=== PATIENT | female | born 1985 | race Caucasian/White ===

== ENCOUNTER 2017-06-15 14:30 | Outpatient (RCR) | payer BC ==
[2017-04-08 08:30] VITALS: BP 120/58
[2017-04-08 08:41] LABS: PLATELET COUNT, AUTOMATED 245 K/uL (150-450)
[2017-04-15 14:37] VITALS: BP 117/64
[2017-05-13] MEDS: NS(*) 0.9% 100 ML BAG 100 ML IVPB PRN (15:04)
[2017-05-13 15:58] VITALS: BP 117/64
[~2017-06-15] VITALS: Ht 167.6 cm; Wt 68.0 kg
[~2017-06-15 14:30] MED LIST: ABA250I IVPB; ABATACEPT 250 MG SDV 750 MG in NS(*) 0.9% 100 ML BAG 100 ML IVPB ONE; CITA-137 PO; DEXTROSE 5%(*) 100 ML BAG 100 ML IVPB PRN; LIDOCAINE/SOD BICARB 8.4% SYR ID PRN; NAPR1TAB PO; NAPR1TAB6 PO
[2017-06-15 14:45] VITALS: BP 124/70
[2017-06-15] MEDS: NS(*) 0.9% 100 ML BAG 100 ML IVPB PRN (15:01)
[2017-06-15 15:13] LABS: PLATELET COUNT, AUTOMATED 237 K/uL (150-450)
[2017-06-15] MEDS ORDERED: ABATACEPT 250 MG SDV 750 MG in NS(*) 0.9% 100 ML BAG 100 ML IVPB ONE (15:30)
== END 2017-07-06 ==
LOC: SPU 14:30
PROVIDERS: ATTEND Nurse Practitioner Family
DX: L40.50 Arthropathic psoriasis, unspecified (principal)
CPT/HCPCS: 85025; 85651; 96365; 96374; J0129; J7050; 82040; 82247; 82310; 82374; 82435; 82565; 82947; 84075; 84132; 84155; 84295; 84450; 84460; 84520

== ENCOUNTER 2017-09-07 14:23 | Outpatient (RCR) | payer BC ==
[2017-07-15 14:28] VITALS: BP 120/80
[2017-07-15] MEDS: NS(*) 0.9% 100 ML BAG 100 ML IVPB PRN (14:40)
[2017-08-12 14:43] VITALS: BP 131/72
[2017-08-12 14:58] LABS: PLATELET COUNT, AUTOMATED 232 K/uL (150-450)
[2017-08-12] MEDS: NS(*) 0.9% 100 ML BAG 100 ML IVPB PRN (15:07)
[2017-09-07 14:41] VITALS: BP 118/74
[2017-09-07] MEDS: NS(*) 0.9% 100 ML BAG 100 ML IVPB PRN (15:00)
[2017-09-07] MEDS ORDERED: ABATACEPT 250 MG SDV 750 MG in NS(*) 0.9% 100 ML BAG 100 ML IVPB ONE (15:00)
== END 2017-10-06 10:47 | disposition home or self-care (01) ==
LOC: SPU 14:23
PROVIDERS: ATTEND Nurse Practitioner Family
DX: L40.50 Arthropathic psoriasis, unspecified (principal)
CPT/HCPCS: 85025; 85651; 96365; 96374; J0129; J7050; 82040; 82247; 82310; 82374; 82435; 82565; 82947; 84075; 84132; 84155; 84295; 84450; 84460; 84520

== ENCOUNTER 2017-11-11 14:24 | Outpatient (RCR) | payer BC ==
[~2017-11-11 14:24] MED LIST changes: -ABATACEPT 250 MG SDV 750 MG in NS(*) 0.9% 100 ML BAG 100 ML IVPB ONE; +NS(*) 0.9% 100 ML BAG 100 ML IVPB PRN
[2017-11-11 14:32] VITALS: BP 123/64
[2017-11-11 14:45] LABS: PLATELET COUNT, AUTOMATED 258 K/uL (150-450)
[2017-11-11] MEDS ORDERED: ABATACEPT 250 MG SDV 750 MG in NS(*) 0.9% 100 ML BAG 100 ML IVPB ONE (15:15)
[2017-11-11 15:35] VITALS: BP 107/75
== END 2017-12-06 11:19 | disposition home or self-care (01) ==
LOC: SPU 14:24
PROVIDERS: ATTEND Nurse Practitioner Family
DX: L40.50 Arthropathic psoriasis, unspecified (principal)
CPT/HCPCS: 82565; 84450; 85025; 85651; 96365; J0129; J7050

== ENCOUNTER 2018-02-02 12:47 | Outpatient (RCR) | payer BC ==
[2017-12-09] MEDS: NS(*) 0.9% 100 ML BAG 100 ML IVPB PRN (14:42)
[2017-12-09 14:45] VITALS: BP 114/72
[2017-12-09 16:07] VITALS: BP 114/72
[~2018-02-02 12:47] MED LIST changes: +ABATACEPT 250 MG SDV 750 MG in NS(*) 0.9% 100 ML BAG 100 ML IVPB ONE; -NS(*) 0.9% 100 ML BAG 100 ML IVPB PRN
[2018-02-02 13:04] LABS: PLATELET COUNT, AUTOMATED 275 K/uL (150-450)
[2018-02-02 13:10] VITALS: BP 122/90
[2018-02-02] MEDS: NS(*) 0.9% 100 ML BAG 100 ML IVPB PRN (13:23)
[2018-02-02] MEDS ORDERED: ABATACEPT 250 MG SDV 750 MG in NS(*) 0.9% 100 ML BAG 100 ML IVPB ONE (14:00)
[2018-02-02 14:03] VITALS: BP 111/74
[2018-02-27] MEDS ORDERED: SERT-184 PO (12:52)
== END 2018-03-09 ==
LOC: SPU 12:47
PROVIDERS: ATTEND Internal Medicine Rheumatology
DX: L40.50 Arthropathic psoriasis, unspecified (principal)
CPT/HCPCS: 82565; 84450; 85025; 85651; 96365; J0129; J7050

== ENCOUNTER → 2018-02-27 | Outpatient (CLI) | payer BC ==
[~2018-02-27] MED LIST changes: -ABATACEPT 250 MG SDV 750 MG in NS(*) 0.9% 100 ML BAG 100 ML IVPB ONE; -DEXTROSE 5%(*) 100 ML BAG 100 ML IVPB PRN; -LIDOCAINE/SOD BICARB 8.4% SYR ID PRN; +SERT-184 PO
== END ==
LOC: LAB 13:13
PROVIDERS: ATTEND Surgery
DX: L98.9 Disorder of the skin and subcutaneous tissue, unspecified (principal)
CPT/HCPCS: 88305

== ENCOUNTER 2018-03-23 13:21 | Outpatient (RCR) | payer BC ==
[2018-03-23] MEDS ORDERED: NS(*) 0.9% 100 ML BAG 100 ML IVPB PRN (13:35)
[2018-03-23] MEDS ORDERED: LIDOCAINE/SOD BICARB 8.4% SYR ID PRN (13:35)
[2018-03-23] MEDS ORDERED: DEXTROSE 5%(*) 100 ML BAG 100 ML IVPB PRN (13:35)
[2018-03-23 13:50] VITALS: BP 112/71
[2018-03-23 13:50] LABS: PLATELET COUNT, AUTOMATED 237 K/uL (150-450)
[2018-03-23] MEDS ORDERED: ABATACEPT 250 MG SDV 750 MG in NS(*) 0.9% 100 ML BAG 100 ML IVPB ONE (14:00)
== END 2018-04-05 12:11 | disposition home or self-care (01) ==
LOC: SPU 13:21
PROVIDERS: ATTEND Internal Medicine Rheumatology
DX: L40.50 Arthropathic psoriasis, unspecified (principal)
CPT/HCPCS: 82565; 84450; 85025; 85651; 96365; J0129; J7050

== ENCOUNTER 2018-06-09 08:00 | Outpatient (RCR) | payer BC ==
[~2018-06-09 08:00] MED LIST changes: +DEXTROSE 5%(*) 100 ML BAG 100 ML IVPB PRN; +LIDOCAINE/SOD BICARB 8.4% SYR ID PRN; +NS(*) 0.9% 100 ML BAG 100 ML IVPB PRN
[2018-06-09 08:17] VITALS: BP 115/82
[2018-06-09 08:28] LABS: PLATELET COUNT, AUTOMATED 269 K/uL (150-450)
[2018-06-09] MEDS ORDERED: ABATACEPT 250 MG SDV 750 MG in NS(*) 0.9% 100 ML BAG 100 ML IVPB ONE (09:30)
[2018-06-09 09:31] VITALS: BP 127/80
== END 2018-06-26 14:12 | disposition home or self-care (01) ==
LOC: SPU 08:00
PROVIDERS: ATTEND Internal Medicine Rheumatology
DX: L40.50 Arthropathic psoriasis, unspecified (principal)
CPT/HCPCS: 82565; 84450; 85025; 85651; 96365; J0129; J7050

== ENCOUNTER 2018-09-26 08:00 | Outpatient (RCR) | payer BC ==
[2018-07-10 13:05] VITALS: BP 143/80
[2018-07-10] MEDS: NS(*) 0.9% 100 ML BAG 100 ML IVPB PRN (13:40)
[2018-07-10 14:12] VITALS: BP 119/77
[2018-08-22 08:48] VITALS: BP 112/66
[2018-08-22 09:05] LABS: PLATELET COUNT, AUTOMATED 230 K/uL (150-450)
[2018-08-22] MEDS: NS(*) 0.9% 100 ML BAG 100 ML IVPB PRN (09:08)
[2018-08-22 09:40] VITALS: BP 112/77
[~2018-09-26 08:00] MED LIST changes: +ABATACEPT 250 MG SDV 750 MG in NS(*) 0.9% 100 ML BAG 100 ML IVPB ONE; -NS(*) 0.9% 100 ML BAG 100 ML IVPB PRN
[2018-09-26] MEDS ORDERED: ABATACEPT 250 MG SDV 750 MG in NS(*) 0.9% 100 ML BAG 100 ML IVPB ONE (08:45)
[2018-09-26 08:46] VITALS: BP 117/74
[2018-09-26] MEDS: NS(*) 0.9% 100 ML BAG 100 ML IVPB PRN (09:25)
[2018-09-26 09:58] VITALS: BP 108/75
== END 2018-10-05 ==
LOC: SPU 08:00
PROVIDERS: ATTEND Internal Medicine Rheumatology
DX: L40.50 Arthropathic psoriasis, unspecified (principal)
CPT/HCPCS: 82565; 84450; 85025; 85651; 96365; J0129; J7050

== ENCOUNTER 2018-11-24 08:00 | Outpatient (RCR) | payer BC ==
[2018-10-24 08:57] VITALS: BP 117/68
[2018-10-24 09:07] LABS: PLATELET COUNT, AUTOMATED 247 K/uL (150-450)
[2018-10-24] MEDS: NS(*) 0.9% 100 ML BAG 100 ML IVPB PRN (09:20)
[~2018-11-24 08:00] MED LIST changes: -ABATACEPT 250 MG SDV 750 MG in NS(*) 0.9% 100 ML BAG 100 ML IVPB ONE; +ABATACEPT IVPB ONE; +NS 0.9% IVPB ONE
[2018-11-24] MEDS: NS(*) 0.9% 100 ML BAG 100 ML IVPB PRN (08:54)
[2018-11-24 08:58] VITALS: BP 121/86
[2018-11-24] MEDS ORDERED: NS 0.9% IVPB ONE (09:30)
[2018-11-24] MEDS ORDERED: ABATACEPT IVPB ONE (09:30)
[2018-11-24 09:55] VITALS: BP 117/67
== END 2018-11-29 12:17 | disposition home or self-care (01) ==
LOC: SPU 08:00
PROVIDERS: ATTEND Internal Medicine Rheumatology
DX: L40.50 Arthropathic psoriasis, unspecified (principal)
CPT/HCPCS: 82565; 84450; 85025; 85651; 96365; 96366; J0129; J7050